=== PATIENT | male | born 1970 | race Asian ===

== ENCOUNTER 2019-06-13 19:45 | Emergency (ER) | payer MEDICAID, OTHER ==
[~2019-06-13] VITALS: Ht 165.1 cm; Wt 55.0 kg
--- NOTE | 2019-06-13 20:08 | NUR ---
BIB EMS FOR DIZZYNESS, PT STATES HE HAS HAD DIZZYNES STARTING AT 3 PM TODAY, WHEN I CLOSE MY EYES I AM SPINNING. PT ALSO DRINKS 2-3 SHOTS A DAY. PT DENIES ANY TRAUMA, OR FALLS. VS STABLE. RESTING COMFORTABLE.
[2019-06-13] MEDS ORDERED: DIAZEPAM 5 MG TABLET PO ONE (20:30)
[2019-06-13] MEDS ORDERED: DIAZEPAM 5 MG TABLET ONE (20:35)
--- NOTE | 2019-06-13 20:49 | NUR ---
AMBULATED TO BATHROOM W STEADY GATE. PT MEDICATED, OFF TO CT.
[2019-06-13 21:31] VITALS: BP 121/88
== END 2019-06-13 21:33 | disposition home or self-care (01) ==
LOC: ED 21:21
DX: H81.10 Benign paroxysmal vertigo, unspecified ear (principal); I10 Essential (primary) hypertension; R51 Headache
CPT/HCPCS: 70450; 99284

== ENCOUNTER 2019-06-15 12:16 | Emergency (ER) | payer MEDICAID ==
[~2019-06-15] VITALS: Ht 165.1 cm; Wt 55.2 kg
--- NOTE | 2019-06-15 12:35 | NUR ---
AMBULATORY TO ED ROOM 31 W/ STEADY GAIT, ACCOMPANIED BY KATHRYN VARNER. CYRACOM TO ROOM - PT SPEAKS PUNJAB; LIMITED MALTESE
--- NOTE | 2019-06-15 12:43 | NUR ---
PT AMBULATORY TO & FROM BR W/OUT INCIDENT; GAIT STEADY. VOIDED SPECIMEN PROVIDED: CLEAR, PALE YELLOW. LAB AT BS.
[2019-06-15] MEDS ORDERED: ATEN50TA41 PO (12:45)
[2019-06-15] MEDS ORDERED: METO100T7 PO (12:46)
--- NOTE | 2019-06-15 12:55 | NUR ---
received report from Elizabeth. pt upright on gurney awake & comfortable, responds approp to staff, NAD at rest, comfort measures provided, call light within reach.
--- NOTE | 2019-06-15 12:56 | NUR ---
PT ENDORSED TO BREAK RN: VIOLETTA
[2019-06-15 13:06] LABS: BASOPHILS # (AUTO) 0.03 x10^3/uL (0-0.1); BASOPHILS % (AUTO) 1 % (0-1); EOSINOPHILS # (AUTO) 0.05 x10^3/uL (0-0.4); EOSINOPHILS % (AUTO) 1 % (1-7); LYMPHOCYTES # (AUTO) 0.65 x10^3/uL (1-3.4); LYMPHOCYTES % (AUTO) 15 % (22-44); MD NO; MEAN CORPUSCULAR HGB CONC 34.2 g/dL (33.2-36.2); MEAN CORPUSCULAR VOLUME 93.5 fL (81-97); MEAN PLATELET VOLUME 6.2 fL (7.4-10.4); MONOCYTES # (AUTO) 0.65 x10^3/uL (0.2-0.8); MONOCYTES % (AUTO) 14 % (2-9); NEUTROPHILS # (AUTO) 3.13 x10^3/uL (1.8-6.8); NEUTROPHILS % (AUTO) 70 % (42-75); PLATELET COUNT 244 x10^3/uL (130-400); RED BLOOD COUNT 4.71 x10^6/uL (4.38-5.82); RED CELL DISTRIBUTION WIDTH 13.4 % (9.4-14.8)
[2019-06-15 13:08] LABS: ALANINE AMINOTRANSFERASE 125 U/L (12-78); ALBUMIN 4.2 g/dL (3.4-5.0); ANION GAP 8 mmol/L (5-15); CALCIUM 8.5 mg/dL (8.5-10.1); CHLORIDE 100 mmol/L (98-107); CREATININE 0.74 mg/dL (0.7-1.3)
[2019-06-15 13:11] LABS: ALKALINE PHOSPHATASE 109 U/L (45-117); BILIRUBIN,TOTAL 0.3 mg/dL (0.2-1.0); TOTAL PROTEIN 8.2 g/dL (6.4-8.2)
--- NOTE | 2019-06-15 14:05 | NUR ---
pt upright on gurney awake & comfortable, ambulated to BR steadily, responds approp to staff, NAD, comfort measures provided, call light within reach.
--- NOTE | 2019-06-15 15:15 | NUR ---
pt remains upright on gurney awake & comfortable, responds approp to staff, NAD, comfort measures provided, call light within reach.
[2019-06-15 15:33] VITALS: BP 155/86
== END 2019-06-15 15:37 | disposition home or self-care (01) ==
LOC: ED 13:44
DX: R42 Dizziness and giddiness (principal); I10 Essential (primary) hypertension; R94.5 Abnormal results of liver function studies
CPT/HCPCS: 36415; 80053; 85025; 93005; 99284

== ENCOUNTER 2020-04-27 18:14 | Emergency (ER) | payer MEDICAID ==
[~2020-04-27] VITALS: Ht 165.1 cm; Wt 59.5 kg
[~2020-04-27 18:14] MED LIST: ATEN50TA41 PO; METO100T7 PO
[2020-04-27] MEDS ORDERED: MECLIZINE CHEWABLE 25 MG TAB PO ONE (18:30)
[2020-04-27 18:46] LABS: BASOPHILS % (AUTO) 0 % (0-1); EOSINOPHILS % (AUTO) 2 % (1-7); LYMPHOCYTES % (AUTO) 23 % (22-44); MEAN CORPUSCULAR HGB CONC 34.3 g/dL (33.2-36.2); MEAN PLATELET VOLUME 6.6 fL (7.4-10.4); MONOCYTES % (AUTO) 8 % (2-9); NEUTROPHILS % (AUTO) 67 % (42-75); PLATELET COUNT 381 x10^3/uL (130-400); RED CELL DISTRIBUTION WIDTH 12.6 % (9.4-14.8)
[2020-04-27 18:47] LABS: MD NO
[2020-04-27 18:59] LABS: ANION GAP 6 mmol/L (5-15); CALCIUM 8.8 mg/dL (8.5-10.1); CHLORIDE 104 mmol/L (98-107)
[2020-04-27 19:00] LABS: CREATININE 0.79 mg/dL (0.7-1.3)
--- NOTE | 2020-04-27 19:20 | NUR ---
PBX MANAGER: PT. TO ROOM FROM LOBBY AT THIS TIME.
[2020-04-27 19:32] VITALS: BP 161/91
--- NOTE | 2020-04-27 19:43 | NUR ---
THIS IS A 49 YO M W/ C/O DIZZINESS X2 YEARS. PT REPORTS TAKES MECLIZINE AT HOME W/ NO RELIEF. PT REPORTS ONLY MEDICAL HX IS HTN. PT RESTING ON GURNEY W/ CALL LIGHT IN REACH AND SIDE RAILS UPX2. RESP EVEN AND UNLABORED, DHARMESHN.
[2020-04-27] MEDS ORDERED: MECLIZINE CHEWABLE 25 MG TAB ONE (19:49)
--- NOTE | 2020-04-27 21:03 | NUR ---
Patient given discharge instructions and they have confirmed that they understand the instructions. Patient ambulatory with steady gait.
== END 2020-04-27 21:04 | disposition home or self-care (01) ==
LOC: ED 20:00
DX: R42 Dizziness and giddiness (principal); L02.31 Cutaneous abscess of buttock; R00.0 Tachycardia, unspecified; F17.200 Nicotine dependence, unspecified, uncomplicated; I10 Essential (primary) hypertension
CPT/HCPCS: 36415; 80048; 82040; 85025; 93005; 99284

== ENCOUNTER 2020-08-04 20:01 | Emergency (ER) | payer MEDICAID ==
[~2020-08-04] VITALS: Ht 165.1 cm; Wt 60.0 kg
[2020-08-04 20:47] LABS: BASOPHILS % (AUTO) 1 % (0-1); EOSINOPHILS % (AUTO) 1 % (1-7); LYMPHOCYTES % (AUTO) 31 % (22-44); MEAN CORPUSCULAR HEMOGLOBIN 31.9 pg (27.5-34.5); MEAN CORPUSCULAR HGB CONC 34.7 g/dL (33.2-36.2); MEAN PLATELET VOLUME 6.6 fL (7.4-10.4); MONOCYTES % (AUTO) 10 % (2-9); NEUTROPHILS % (AUTO) 57 % (42-75); PLATELET COUNT 333 x10^3/uL (130-400); RED BLOOD COUNT 4.44 x10^6/uL (4.38-5.82); RED CELL DISTRIBUTION WIDTH 12.7 % (9.4-14.8)
[2020-08-04 20:51] LABS: MD NO
[2020-08-04 20:56] LABS: ANION GAP 8 mmol/L (5-15); CALCIUM 8.9 mg/dL (8.5-10.1); CHLORIDE 107 mmol/L (98-107); CREATININE 0.87 mg/dL (0.7-1.3)
--- NOTE | 2020-08-04 23:12 | NUR ---
pulse sitting- 66 pulse standing 62 see interventions for BP's and first Pulse
[2020-08-04 23:14] VITALS: BP 149/96
--- NOTE | 2020-08-04 23:14 | NUR ---
favian lowery at bedside for assessment
== END 2020-08-05 00:17 | disposition home or self-care (01) ==
LOC: ED 20:31
DX: R42 Dizziness and giddiness (principal); R07.89 Other chest pain; I10 Essential (primary) hypertension; F17.200 Nicotine dependence, unspecified, uncomplicated
CPT/HCPCS: 36415; 71046; 80048; 82040; 85025; 93005; 99285